=== PATIENT | female | born 1990 | race Caucasian/White ===

== ENCOUNTER 2020-08-08 09:38 | Emergency (ER) | payer OTHER, MEDICAID ==
[~2020-08-08] VITALS: Ht 162.6 cm; Wt 49.9 kg
[2020-08-08 09:45] VITALS: BP 120/87
[2020-08-08] MEDS ORDERED: METHADOSE5 MG PO (09:52)
[2020-08-08] MEDS ORDERED: KLONOPIN1 MG PO (09:52)
[2020-08-08 11:00] LABS: CALCIUM 8.3 mg/dL (8.5-10.1); CREATININE 0.6 mg/dL (0.6-1.3); POTASSIUM 3.8 mmol/L (3.5-5.1)
== END 2020-08-08 10:52 | disposition home or self-care (01) ==
LOC: M.ERS 09:38
PROVIDERS: Emergency Medicine Emergency Medical Services
DX: R10.84 Generalized abdominal pain (principal); Z76.0 Encounter for issue of repeat prescription; Z88.0 Allergy status to penicillin; Z98.890 Other specified postprocedural states